=== PATIENT | male | born 1945 | race Caucasian/White ===

== ENCOUNTER 2016-06-20 15:00 | Emergency (ER) | payer MEDICARE, OTHER ==
[2016-02-26 10:54] VITALS: BMI 31.8
[~2016-06-20 15:00] MED LIST: ASCORBIC ACID500 MG PO; ATARAX 25 MG TA25 MG PO; BAYER CHEWABLE81 MG PO; BUMEX 1 MG TAB1 MG PO; CORDARONE200 MG PO; DIPROLENE 0.05%60 M1 TOPICAL; FLORAJEN3 CAPS460 MG PO; LEVAQUIN500 MG PO; LEVAQUIN750 MG PO; LIBRAX CAPSULE1 CAP PO; LOPID600 MG PO; METHADONE 10 MG10 MG PO; NOVOLIN N100 U/ML SQ; NOVOLIN R100 U/ML SQ; OMEPRAZOLE40 MG PO; PRAVACHOL80 MG PO; PREDNISONE20 MG PO; VERELAN120 MG PO; ZANAFLEX4 MG PO; ZESTORETIC 20-1 EACH PO
== END 2016-06-20 17:08 | disposition home or self-care (01) ==
LOC: D.ER 15:00
DX: S00.81XA Abrasion of other part of head, initial encounter (principal); W19.XXXA Unspecified fall, initial encounter; Y93.89 Activity, other specified; Y92.89 Other specified places as the place of occurrence of the external cause; S43.401A Unspecified sprain of right shoulder joint, initial encounter; I50.9 Heart failure, unspecified; J44.9 Chronic obstructive pulmonary disease, unspecified; E11.9 Type 2 diabetes mellitus without complications; I10 Essential (primary) hypertension; G89.29 Other chronic pain; Z99.81 Dependence on supplemental oxygen

== ENCOUNTER → 2016-06-26 13:05 | Outpatient (CLI) | payer MEDICARE, OTHER ==
[2016-02-26 10:54] VITALS: BMI 31.8
== END | disposition home or self-care (01) ==
LOC: D.CT 13:05
DX: S42.253A Displaced fracture of greater tuberosity of unspecified humerus, initial encounter for closed fracture (principal)

== ENCOUNTER → 2016-08-12 09:52 | Outpatient (CLI) | payer MEDICARE, OTHER ==
[2016-02-26 10:54] VITALS: BMI 31.8
== END | disposition home or self-care (01) ==
LOC: D.US 09:52
DX: I71.4 Abdominal aortic aneurysm, without rupture (principal)

== ENCOUNTER → 2016-11-03 12:23 | Outpatient (CLI) | payer MEDICARE, OTHER ==
[2016-02-26 10:54] VITALS: BMI 31.8
== END | disposition home or self-care (01) ==
LOC: D.CT 12:23
DX: S42.251A Displaced fracture of greater tuberosity of right humerus, initial encounter for closed fracture (principal); M25.511 Pain in right shoulder

== ENCOUNTER 2016-11-20 07:30 | Day surgery (SDC) | payer MEDICARE, OTHER ==
[~2016-11-20] VITALS: Ht 177.8 cm; Wt 101.6 kg
[2016-11-20] MEDS ORDERED: FUROSEMIDE20 MG PO (08:04)
[2016-11-20] MEDS ORDERED: NOVOLIN R100 U/ML SQ ×2 (08:07→08:08)
[2016-11-20] MEDS ORDERED: PROAIR HFA8.5 GM INH (08:10)
[2016-11-20] MEDS ORDERED: ZYLOPRIM100 MG PO (08:10)
[2016-11-20 08:11] LABS: HEMATOCRIT 34.3 % (42.0-54.0); HEMOGLOBIN 11.4 g/dL (13.5-17.5); MCH 32.3 pg (26.0-34.0); MCHC 33.2 g/dL (31.0-37.0); MCV 97.2 fL (80.0-100.0); MEAN PLATELET VOLUME 10.1 fL (7.4-10.4); RBC 3.53 10x6/uL (4.20-6.10); RDW 14.7 % (11.5-14.5); WBC 10.7 10x3/uL (4.8-10.8)
[2016-11-20] MEDS ORDERED: BUMEX 1 MG TAB1 MG PO (08:11)
[2016-11-20 08:20] VITALS: BP 116/65; Ht 177.8 cm; Wt 101.6 kg
[2016-11-20 08:20] LABS: ANION GAP 19.1 mmol/L (8-16); CALCIUM 8.9 mg/dL (8.5-10.1); CARBON DIOXIDE 23.4 mmol/L (21.0-32.0); CREATININE - SERUM 2.3 mg/dL (0.6-1.3); POTASSIUM - SERUM 4.5 mmol/L (3.5-5.1)
[2016-11-20] MEDS ORDERED: MORPHINE IMMEDI15 MG PO (08:24)
[2016-11-20] MEDS ORDERED: PLAVIX75 MG PO (08:30)
[2016-11-20] MEDS ORDERED: MEPERIDINE HCL50 MG PO (11:41)
--- NOTE | 2016-11-20 15:26 | NUR ---
1325 IV DC WITH CATHER TIP INTACT
--- NOTE | 2016-11-27 13:14 | OP ---
PATIENT NAME: LEO HOWARD MEDICAL RECORD: [id number] :47 LOCATION:D.OPS ADMISSION DATE: SURGEON: HAIM CALLAHAN MD OPERATION DATE: 11/20/16 DATE OF OPERATION: 11/20/2016 PREOPERATIVE DIAGNOSIS: Rotator cuff tear of the right shoulder. POSTOPERATIVE DIAGNOSIS: Rotator cuff tear of the right shoulder. PROCEDURES: Rotator cuff repair of the right shoulder to include subacromial decompression, biceps tendinitis. SURGEON: Haim Callahan MD. ANESTHESIA: General. INTRAOPERATIVE COMPLICATIONS: None. OPERATIVE SUMMARY IN DETAIL: Patient was taken to the operating room and placed on the operating table in supine position. After general laryngeal mask was administered, the patient was placed in the beach chair position. All pressure points were well padded to include down leg peroneal pad as well as axillary roll. The patient was held firmly to the operating table using the vacuum pack suction system. Right upper extremity and shoulder were prepped and draped in routine sterile fashion. The arm was held in the Trimano arm holding device. A saber-type incision was created, taken down the level of the rotator cuff tear that was evaluated. Dissection was carried about the anterior aspect of the acromion. Acromioplasty was performed with a sagittal saw. Rotator cuff tear was evaluated and the patient was found to have severe biceps tendinitis. Biceps was then cut at the root of the biceps tendon and anchored laterally using a 7-mm anchor from Arthrex with good position and placement. The lateral aspect of the greater tuberosity was rasped back to good bleeding bone and then the rotator cuff was repaired using the double row fixation of the Arthrex suture anchors. Having completed this, the wounds were copiously irrigated and closed in routine interrupted fashion. Sterile dressings were applied. The patient was awakened and taken to the recovery room in stable condition. All final needle and sponge counts were correct. TRANSINT:[id number] Voice Confirmation ID: [id number] DOCUMENT ID: [id number] HAIM CALLAHAN MD at 1314 CC: [id number] DICTATION DATE: 11/21/16 1055 CONTOUR SANDER: 11/27/16 0004 [facility] 11/20/16 [place] [address]
== END 2016-11-20 13:30 | disposition home or self-care (01) ==
LOC: D.OPS 07:30
PROVIDERS: Anesthesiology
DX: M75.101 Unspecified rotator cuff tear or rupture of right shoulder, not specified as traumatic (principal); M25.511 Pain in right shoulder; I25.10 Atherosclerotic heart disease of native coronary artery without angina pectoris; I10 Essential (primary) hypertension; E11.9 Type 2 diabetes mellitus without complications; J44.9 Chronic obstructive pulmonary disease, unspecified; Z95.1 Presence of aortocoronary bypass graft; K21.9 Gastro-esophageal reflux disease without esophagitis; I50.9 Heart failure, unspecified; Z01.812 Encounter for preprocedural laboratory examination; S42.251A Displaced fracture of greater tuberosity of right humerus, initial encounter for closed fracture

== ENCOUNTER → 2017-02-04 10:33 | Outpatient (CLI) | payer MEDICARE, OTHER ==
[2016-11-20 08:20] VITALS: BMI 32.2
[~2017-02-04 10:33] MED LIST changes: +FUROSEMIDE20 MG PO; +MEPERIDINE HCL50 MG PO; +MORPHINE IMMEDI15 MG PO; +PLAVIX75 MG PO; +PROAIR HFA8.5 GM INH; +ZYLOPRIM100 MG PO
== END | disposition home or self-care (01) ==
LOC: D.US 10:33
DX: R60.0 Localized edema (principal); M79.601 Pain in right arm

== ENCOUNTER → 2017-04-17 10:10 | Outpatient (CLI) | payer MEDICARE, OTHER ==
[2016-11-20 08:20] VITALS: BMI 32.2
[~2017-04-17 10:10] MED LIST changes: +BUTALB-APAP-CA1 EACH PO; +COLACE100 MG PO; +DIFLUCAN150 MG PO; +MIRALAX17 GM PO; +ONDANSETRON4 MG/2 M3 IV; +PROTONIX40 MG PO; +VELTASSA8.4 GM PO; +VITAMIN D250000 UNIT PO
== END | disposition home or self-care (01) ==
LOC: D.LAB 10:10
DX: N18.4 Chronic kidney disease, stage 4 (severe) (principal); E87.5 Hyperkalemia

== ENCOUNTER → 2017-04-20 09:51 | Outpatient (CLI) | payer MEDICARE, OTHER ==
[2016-11-20 08:20] VITALS: BMI 32.2
[2017-04-20 10:48] LABS: MAGNESIUM - SERUM 2.2 mg/dL (1.8-2.4); POTASSIUM - SERUM 5.7 mmol/L (3.5-5.1)
== END | disposition home or self-care (01) ==
LOC: D.LAB 09:51
PROVIDERS: Internal Medicine Nephrology
DX: E87.5 Hyperkalemia (principal)

== ENCOUNTER 2017-04-23 05:59 | Day surgery (SDC) | payer MEDICARE, OTHER ==
[2017-04-22 14:25] LABS: HEMATOCRIT 34.8 % (42.0-54.0); HEMOGLOBIN 11.6 g/dL (13.5-17.5); MCH 31.4 pg (26.0-34.0); MCHC 33.3 g/dL (31.0-37.0); MCV 94.3 fL (80.0-100.0); MEAN PLATELET VOLUME 10.5 fL (7.4-10.4); RBC 3.69 10x6/uL (4.20-6.10); RDW 14.5 % (11.5-14.5); WBC 9.5 10x3/uL (4.8-10.8)
[2017-04-22 14:33] LABS: ANION GAP 17.8 mmol/L (8-16); CALCIUM 9.7 mg/dL (8.5-10.1); CARBON DIOXIDE 22.5 mmol/L (21.0-32.0); CREATININE - SERUM 1.8 mg/dL (0.6-1.3); POTASSIUM - SERUM 5.3 mmol/L (3.5-5.1)
[~2017-04-23] VITALS: Ht 177.8 cm; Wt 105.2 kg
[~2017-04-23 05:59] MED LIST changes: -COLACE100 MG PO; -DIFLUCAN150 MG PO; -MIRALAX17 GM PO; -ONDANSETRON4 MG/2 M3 IV; -PROTONIX40 MG PO
[2017-04-23 09:29] VITALS: BP 98/58; Ht 177.8 cm; Wt 105.2 kg
[2017-04-23 10:09] LABS: POTASSIUM - SERUM 5.2 mmol/L (3.5-5.1)
[2017-04-23] MEDS ORDERED: MEPERIDINE HCL50 MG PO (13:41)
--- NOTE | 2017-04-23 16:07 | NUR ---
1545 DISCHARGE INSTRUCTIONS COMPLETE. PT HAS NO QUESTIONS OR CONCERNS AT THIS TIME. SLING PLACED AND PRESCRITPION GIVEN. ESCORTED OUT BY LC VELÁZQUEZ.
--- NOTE | 2017-04-27 09:27 | OP ---
PATIENT NAME: LEO HOWARD MEDICAL RECORD: [id number] :47 LOCATION:D.OPS ADMISSION DATE: SURGEON: HAIM CALLAHAN MD DATE OF OPERATION: 04/23/2017 PREOPERATIVE DIAGNOSIS: Large intraarticular loose body of the right shoulder with residual rotator cuff tear. POSTOPERATIVE DIAGNOSIS: Large intraarticular loose body of the right shoulder with residual rotator cuff tear. PROCEDURES: 1. Right shoulder arthroscopy with arthroscopic removal of intraarticular loose body. 2. Rotator cuff repair. SURGEON: Haim Callahan MD ANESTHESIA: General. INTRAOPERATIVE COMPLICATIONS: None. SUMMARY OF PATHOLOGIC FINDINGS: The patient did indeed have one of the previously placed suture anchors that had backed out and required removal. This was done arthroscopically. A small void in the rotator cuff was left behind. OPERATIVE SUMMARY IN DETAIL: After obtaining the appropriate preoperative orthopedic surgery consent as well as anesthetic consultation, evaluation and clearance, the patient was brought to the operating room and placed on the operating table in supine position. After general laryngeal mask was administered, the patient was placed in left lateral decubitus position. All pressure points were well padded to include down leg peroneal pad as well as axillary roll. The patient was held firmly to the operating table using the vacuum pack suction system. Right upper extremity and shoulder were then prepped and draped in a routine sterile fashion. The arm was held in the Arthrex traction boom at 30 degrees of forward flexion, 30 degrees of abduction, and 10 pounds of traction laterally. A small stab incision was made posteriorly. The posterior portal was established in usual fashion as was as the anterior portal under direct arthroscopic visualization. Small portion of fragment of the screw was removed, as was a bony prominence. These were taken down with a combination of arthroscopic resectors as well as arthroscopic graspers. Having completed this, attention was turned to the subacromial space. While in the subacromial space, a large area of rotator cuff thinning and tearing was noted. This was debrided, decorticated and then reapproximated. Mini-arthrotomy was made at this point and reapproximation was done under direct visualization using #2 Ethibond. Substantial amount of scar tissue was taken down. Wound was then closed with 2-0 Vicryl, followed by skin juni. Sterile dressings were applied. The patient was awakened and taken to the recovery room in stable condition. All final needle, instrument, and sponge counts were correct. TRANSINT:[id number] Voice Confirmation ID: [id number] DOCUMENT ID: [id number] OPERATIVE REPORT [id number] LEO HOWARD MD, HAIM AHUJA at 0927 CC: [id number] DICTATION DATE: 04/23/17 141 INSIDE BARREL LATHE OPERATOR: 04/23/17 1627 [facility] [place] 04/23/17 [id number] [place] [address]
== END 2017-04-23 15:45 | disposition home or self-care (01) ==
LOC: D.OPS 05:59 → D.PAN 13:30 → D.OPS 13:30
PROVIDERS: Anesthesiology; Orthopaedic Surgery
DX: M77.9 Enthesopathy, unspecified (principal); M75.101 Unspecified rotator cuff tear or rupture of right shoulder, not specified as traumatic; I25.10 Atherosclerotic heart disease of native coronary artery without angina pectoris; I10 Essential (primary) hypertension; E11.9 Type 2 diabetes mellitus without complications; J44.9 Chronic obstructive pulmonary disease, unspecified; Z95.5 Presence of coronary angioplasty implant and graft; Z95.1 Presence of aortocoronary bypass graft; Z01.812 Encounter for preprocedural laboratory examination

== ENCOUNTER 2017-05-29 13:24 | Inpatient (IN) | payer MEDICARE, OTHER ==
[~2017-05-29] VITALS: Ht 177.8 cm; Wt 104.3 kg
--- NOTE | ~2017-05-29 | CN ---
PATIENT NAME:LEO HOWARD MEDICAL RECORD: [id number] : 47 LOCATION:D.MS [facility]27 ADMIT DATE: 05/29/17 ACCOUNT: [id number] CONSULTING PHYSICIAN: TERESO CHEEMA MD REFERRING PHYSICIAN: DENIS HARRISON MD DATE OF CONSULTATION: 06/03/2017 CHIEF COMPLAINT: Sore. HISTORY OF PRESENT ILLNESS: The patient presented to the Emergency Room with generalized weakness. It has been present for a couple of weeks. I thought that the patient had a neurologic disorder. He states he does not have a neurologic disorder, although he has some spasticity of the extremities. He states that he is weak due to chronic obstructive pulmonary disease and that he sits around a lot. He has a decubitus ulcer that is unstageable currently that is on both the buttocks and over the sacrum. 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 He is admitted with the decubitus ulcer as well as generalized weakness, anemia, hyperglycemia, acute kidney injury as well as dehydration. Reportedly, the patient has been treated for a urinary tract infection recently. Symptoms are difficult to characterize by the patient. Sitting seems to exacerbate. Nothing seems to alleviate. PAST MEDICAL AND SURGICAL HISTORY: COPD, hypoxemia, forehead abrasion, ligamentous sprain, history of intracranial hemorrhage due to a fall in 2013, so it does appear that he has had a neurologic condition in the past, history of bypass, history of coronary stents, congestive heart failure, chronic pain, significant deterioration in the spine and back, diabetes type 2, pneumonia. SOCIAL HISTORY: Does not drink, does not smoke. HOME MEDICINES: Amiodarone, ascorbic acid, aspirin, topical cream, bumetanide, cetirizine, Plavix, ferrous sulfate, Fiorinal, gemfibrozil, NPH insulin, methadone, Zestoretic, pravastatin, tizanidine, Ventolin inhaler, verapamil, Zantac. ALLERGIES: CODEINE, ALSO ALLERGIES TO GABAPENTIN, TALWIN, WHEAT, HYDROCODONE, OXYCODONE, CODEINE, AND SECONAL. PHYSICAL EXAMINATION: GENERAL: The patient appears acutely ill. He also appears chronically ill. VITAL SIGNS: Reviewed. EARS: External ears appear normal. EYES: Extraocular movements are intact. NECK: Trachea is midline. CHEST: No intercostal retractions. PULMONARY: Mildly labored. No stridor. ABDOMEN: No peritonitis with movement. EXTREMITIES: Some extremity contractures. Partial hand amputation. PSYCHIATRIC: Anxious affect. NEUROLOGIC: Abnormal. Decreased motion of the extremities. BACK: Thoracic kyphosis is present. LYMPHATICS: No lymphangitic streaking of the exposed extremities. INTEGUMENT: There is a decubitus ulcer over the buttocks that is currently CONSULT REPORT [id number] LEO HOWARD unstageable. There is some dry eschar as well as some surrounding granulation tissue. IMPRESSION: Sacral decubitus ulcer. PLAN: Debridement in the operating room. TRANSINT:[id number] Voice Confirmation ID: [id number] DOCUMENT ID: [id number] TERESO CHEEMA MD at 1454 CC: REBECCA SEWELL [id number] DICTATION DATE: 06/05/17 0838 AGRICULTURAL EQUIPMENT DESIGN ENGINEER: 06/05/17 1325 DIS IN 06/05/17 [facility] [address] [place] [address]
--- NOTE | ~2017-05-29 | OP ---
PATIENT NAME: LEO HOWARD MEDICAL RECORD: [id number] :47 LOCATION:D.MS [facility]27 ADMISSION DATE:05/29/17 SURGEON: KALIN CHEEMA MD DATE OF OPERATION: 06/05/2017 PREOPERATIVE DIAGNOSIS: Sacral decubitus ulcer. POSTOPERATIVE DIAGNOSIS: Sacral decubitus ulcer. Please see dimensions below. PROCEDURE: Excision of decubitus ulcer. Dimensions of the debridement, including margins, measured 4.2 cm x 3.2 cm included skin only. This was a partial thickness skin debridement. The debridement was a sharp debridement. Debridement was carried down to bleeding healthy tissue. SURGEON: Kalin Cheema MD PENSION ADVISER: None. BLOOD LOSS: Minimal. ANESTHESIA: General. COMPLICATIONS: None. The risks, possible complications and alternatives to procedure were explained to the patient. He elects to proceed. OPERATIVE COURSE: The patient was conveyed to the operating room electively on 06/05/2017. General anesthesia was induced by the anesthesia staff. The patient was placed in the full lateral decubitus position with the left side down. The buttocks were sterilely prepped and draped. Utilizing a razor blade held in a curved position, I performed a partial thickness debridement of the skin down into the dermis. The epidermis was debrided as well. Hemostasis was achieved with hydrogen peroxide. A saline wet to dry dressing was then applied. The patient was then extubated and conveyed to the post-anesthesia care unit where he was in stable condition. TRANSINT:[id number] Voice Confirmation ID: [id number] DOCUMENT ID: [id number] KALIN CHEEMA MD at 1454 CC: DENIS HARRISON MD [id number] DICTATION DATE: 06/05/17 0841 CONVERSION WORKER: 06/05/17 1242 DIS IN 06/05/17 [facility] [address] [place] [id number]
[2017-05-29 15:02] LABS: BASOPHILS 0.3 % (0-2); EOSINOPHILS 14.7 % (0-7); HEMATOCRIT 31.1 % (42.0-54.0); IMMATURE GRANULOCYTES 0.8 % (0-5); LYMPHOCYTES 25.5 % (15-50); MCHC 32.2 g/dL (31.0-37.0); MCV 96.3 fL (80.0-100.0); MEAN PLATELET VOLUME 10.4 fL (7.4-10.4); MONOCYTES 6.3 % (2-11); NEUTROPHILS 52.4 % (40-80); PLATELET COUNT 168 10x3/uL (130-400); RBC 3.23 10x6/uL (4.20-6.10); RDW 14.9 % (11.5-14.5); WBC 8.9 10x3/uL (4.8-10.8)
[2017-05-29 15:14] LABS: ALBUMIN 3.5 g/dL (3.4-5.0); ALKALINE PHOSPHATASE 106 U/L (46-116); ALT (SGPT) 15 U/L (10-68); BILIRUBIN - TOTAL 0.18 mg/dL (0.2-1.3); CALC OSMOLALITY 297 mosm/kg (275-300); CALCIUM 9.3 mg/dL (8.5-10.1); CARBON DIOXIDE 26.2 mmol/L (21.0-32.0); CHLORIDE - SERUM 100 mmol/L (98-107); CREATININE - SERUM 2.8 mg/dL (0.6-1.3); GLUCOSE 210 mg/dL (74-106); POTASSIUM - SERUM 5.7 mmol/L (3.5-5.1); PROTEIN - SERUM 7.3 g/dL (6.4-8.2); SODIUM 136 mmol/L (136-145); UREA NITROGEN 68 mg/dL (7-18); eGFR NON AFRICAN AMERICAN 24 mL/min (90-120)
[2017-05-29 15:24] LABS: CREATINE KINASE 62 UL (21-232); MAGNESIUM - SERUM 2.2 mg/dL (1.8-2.4); PRO BNP 64 pg/mL (0-125); THYROID STIMULATING HORMONE 3.54 uIU/mL (0.36-3.74)
[2017-05-29 15:25] LABS: TROPONIN-I < 0.017 ng/mL (0.000-0.060)
[2017-05-29 16:41] LABS: APPEARANCE CLEAR (CLEAR); BACTERIA FEW /hpf (NONE SEEN); BILIRUBIN NEGATIVE (NEGATIVE); COLOR YELLOW (YELLOW); GLUCOSE NEGATIVE (NEGATIVE); KETONE NEGATIVE (NEGATIVE); NITRITE NEGATIVE (NEGATIVE); PROTEIN NEGATIVE (NEGATIVE); SPECIFIC GRAVITY 1.015 (1.005-1.020); UROBILINOGEN NORMAL (NORMAL); WHITE CELLS - URINE 0-5 /hpf (0-5)
[2017-05-29 20:00] VITALS: BP 173/76
[2017-05-30] VITALS (7 sets, daily range): BP systolic 147–182; BP diastolic 64–69; Ht 177.8 cm; Wt 104.3 kg
[2017-05-30] MEDS ORDERED: DIFLUCAN150 MG PO (01:41)
[2017-05-30 07:09] LABS: HEMATOCRIT 33.7 % (42.0-54.0); HEMOGLOBIN 11.4 g/dL (13.5-17.5); LYMPHOCYTES 20.4 % (15-50); MCH 30.6 pg (26.0-34.0); MCHC 33.8 g/dL (31.0-37.0); MEAN PLATELET VOLUME 9.9 fL (7.4-10.4); NEUTROPHILS 69.1 % (40-80); RBC 3.73 10x6/uL (4.20-6.10); RDW 14.3 % (11.5-14.5); WBC 11.1 10x3/uL (4.8-10.8)
[2017-05-30 07:20] LABS: MCV 90.3 fL (80.0-100.0); PLATELET COUNT 210 10x3/uL (130-400)
[2017-05-30 07:21] LABS: ANION GAP 15.8 mmol/L (8-16); CALCIUM 9.2 mg/dL (8.5-10.1); CARBON DIOXIDE 28.3 mmol/L (21.0-32.0)
[2017-05-30 07:22] LABS: POTASSIUM - SERUM 6.1 mmol/L (3.5-5.1)
[2017-05-31 08:42] VITALS: BP 177/66
[2017-05-31 11:51] VITALS: BP 153/82
[2017-05-31 13:00] LABS: BASOPHILS 0.5 % (0-2); EOSINOPHILS 14.8 % (0-7); HEMOGLOBIN 11.4 g/dL (13.5-17.5); IMMATURE GRANULOCYTES 0.7 % (0-5); LYMPHOCYTES 24.9 % (15-50); MCH 31.5 pg (26.0-34.0); MCHC 33.5 g/dL (31.0-37.0); MEAN PLATELET VOLUME 10.3 fL (7.4-10.4); MONOCYTES 7.4 % (2-11); NEUTROPHILS 51.7 % (40-80); RBC 3.62 10x6/uL (4.20-6.10); RDW 15.1 % (11.5-14.5); WBC 9.2 10x3/uL (4.8-10.8)
[2017-05-31 13:01] LABS: MCV 93.9 fL (80.0-100.0); PLATELET COUNT 92 10x3/uL (130-400)
[2017-05-31 13:04] LABS: PLATELET ESTIMATE NORMAL
[2017-05-31 13:18] LABS: ANION GAP 18.9 mmol/L (8-16); CALCIUM 8.7 mg/dL (8.5-10.1); CARBON DIOXIDE 24.3 mmol/L (21.0-32.0); CREATININE - SERUM 1.7 mg/dL (0.6-1.3); POTASSIUM - SERUM 5.2 mmol/L (3.5-5.1)
[2017-05-31 15:39] VITALS: BP 154/69
[2017-05-31 15:57] LABS: APPEARANCE CLEAR (CLEAR); BILIRUBIN NEGATIVE (NEGATIVE); COLOR YELLOW (YELLOW); GLUCOSE 1000 mg/dL (NEGATIVE); KETONE NEGATIVE (NEGATIVE); NITRITE NEGATIVE (NEGATIVE); PROTEIN NEGATIVE (NEGATIVE); UROBILINOGEN NORMAL (NORMAL)
[2017-05-31 20:00] VITALS: BP 150/83
[2017-06-01] VITALS: BP 135/65
[2017-06-01 04:00] VITALS: BP 102/66
[2017-06-01 04:36] LABS: BASOPHILS 0.2 % (0-2); EOSINOPHILS 14.5 % (0-7); HEMATOCRIT 31.1 % (42.0-54.0); HEMOGLOBIN 10.1 g/dL (13.5-17.5); IMMATURE GRANULOCYTES 0.7 % (0-5); LYMPHOCYTES 33.8 % (15-50); MCH 30.9 pg (26.0-34.0); MCHC 32.5 g/dL (31.0-37.0); MCV 95.1 fL (80.0-100.0); MEAN PLATELET VOLUME 9.7 fL (7.4-10.4); MONOCYTES 5.5 % (2-11); NEUTROPHILS 45.3 % (40-80); RBC 3.27 10x6/uL (4.20-6.10); RDW 14.9 % (11.5-14.5); WBC 10.3 10x3/uL (4.8-10.8)
[2017-06-01 04:38] LABS: PLATELET COUNT 182 10x3/uL (130-400)
[2017-06-01 04:54] LABS: ANION GAP 13.8 mmol/L (8-16); CALCIUM 8.6 mg/dL (8.5-10.1); CARBON DIOXIDE 26.9 mmol/L (21.0-32.0); CREATININE - SERUM 1.4 mg/dL (0.6-1.3); POTASSIUM - SERUM 4.7 mmol/L (3.5-5.1)
[2017-06-01 08:45] VITALS: BP 153/77
[2017-06-01 12:37] VITALS: BP 168/74
[2017-06-01 17:51] VITALS: BP 158/75
[2017-06-01 20:00] VITALS: BP 148/65
[2017-06-02 04:00] VITALS: BP 125/61
[2017-06-02 04:54] LABS: BASOPHILS 0.3 % (0-2); EOSINOPHILS 17.1 % (0-7); HEMOGLOBIN 9.3 g/dL (13.5-17.5); IMMATURE GRANULOCYTES 0.7 % (0-5); LYMPHOCYTES 32.5 % (15-50); MCH 30.8 pg (26.0-34.0); MCHC 32.1 g/dL (31.0-37.0); MEAN PLATELET VOLUME 10.1 fL (7.4-10.4); MONOCYTES 5.8 % (2-11); NEUTROPHILS 43.6 % (40-80); PLATELET COUNT 152 10x3/uL (130-400); RBC 3.02 10x6/uL (4.20-6.10); WBC 9.1 10x3/uL (4.8-10.8)
[2017-06-02 05:21] LABS: ALBUMIN 2.9 g/dL (3.4-5.0); ANION GAP 11.7 mmol/L (8-16); BILIRUBIN - TOTAL 0.2 mg/dL (0.2-1.3); CALCIUM 8.4 mg/dL (8.5-10.1); CARBON DIOXIDE 27.8 mmol/L (21.0-32.0); CREATININE - SERUM 1.4 mg/dL (0.6-1.3); POTASSIUM - SERUM 4.5 mmol/L (3.5-5.1); PROTEIN - SERUM 6.2 g/dL (6.4-8.2)
[2017-06-02 09:29] VITALS: BP 146/69
[2017-06-02 15:31] LABS: APPEARANCE CLEAR (CLEAR); BILIRUBIN NEGATIVE (NEGATIVE); COLOR YELLOW (YELLOW); GLUCOSE 250 mg/dL (NEGATIVE); KETONE NEGATIVE (NEGATIVE); NITRITE NEGATIVE (NEGATIVE); PROTEIN NEGATIVE (NEGATIVE); UROBILINOGEN NORMAL (NORMAL)
[2017-06-02 21:30] VITALS: BP 115/47
[2017-06-03 04:00] VITALS: BP 114/57
[2017-06-03 06:52] LABS: BASOPHILS 0.5 % (0-2); EOSINOPHILS 18.1 % (0-7); HEMATOCRIT 28.5 % (42.0-54.0); HEMOGLOBIN 9.3 g/dL (13.5-17.5); IMMATURE GRANULOCYTES 1.2 % (0-5); LYMPHOCYTES 32.9 % (15-50); MCH 31.1 pg (26.0-34.0); MCHC 32.6 g/dL (31.0-37.0); MCV 95.3 fL (80.0-100.0); MEAN PLATELET VOLUME 10.2 fL (7.4-10.4); MONOCYTES 6.6 % (2-11); NEUTROPHILS 40.7 % (40-80); PLATELET COUNT 146 10x3/uL (130-400); RBC 2.99 10x6/uL (4.20-6.10); RDW 15.1 % (11.5-14.5); WBC 7.4 10x3/uL (4.8-10.8)
[2017-06-03 07:39] LABS: ALBUMIN 2.9 g/dL (3.4-5.0); ANION GAP 15.6 mmol/L (8-16); BILIRUBIN - TOTAL 0.19 mg/dL (0.2-1.3); CALCIUM 8.7 mg/dL (8.5-10.1); CARBON DIOXIDE 25.8 mmol/L (21.0-32.0); CREATININE - SERUM 1.2 mg/dL (0.6-1.3); POTASSIUM - SERUM 4.4 mmol/L (3.5-5.1); PROTEIN - SERUM 6.3 g/dL (6.4-8.2)
[2017-06-03 08:09] VITALS: BP 125/62
[2017-06-03 12:45] VITALS: BP 130/60
[2017-06-03 16:28] VITALS: BP 132/64
[2017-06-03 22:57] VITALS: BP 155/69
[2017-06-04] VITALS (7 sets, daily range): BP systolic 101–176; BP diastolic 46–93
[2017-06-04 04:30] LABS: BASOPHILS 0.4 % (0-2); EOSINOPHILS 18.1 % (0-7); HEMATOCRIT 26.8 % (42.0-54.0); HEMOGLOBIN 8.7 g/dL (13.5-17.5); IMMATURE GRANULOCYTES 0.7 % (0-5); LYMPHOCYTES 34.2 % (15-50); MCH 31.1 pg (26.0-34.0); MCHC 32.5 g/dL (31.0-37.0); MCV 95.7 fL (80.0-100.0); MEAN PLATELET VOLUME 9.5 fL (7.4-10.4); MONOCYTES 6.2 % (2-11); NEUTROPHILS 40.4 % (40-80); PLATELET COUNT 132 10x3/uL (130-400); RDW 15.4 % (11.5-14.5)
[2017-06-04 05:02] LABS: ALBUMIN 2.7 g/dL (3.4-5.0); ALKALINE PHOSPHATASE 93 U/L (46-116); ALT (SGPT) 20 U/L (10-68); BILIRUBIN - TOTAL 0.18 mg/dL (0.2-1.3); CALC OSMOLALITY 286 mosm/kg (275-300); CALCIUM 7.4 mg/dL (8.5-10.1); CARBON DIOXIDE 23.2 mmol/L (21.0-32.0); CHLORIDE - SERUM 107 mmol/L (98-107); GLUCOSE 191 mg/dL (74-106); POTASSIUM - SERUM 4.7 mmol/L (3.5-5.1); PROTEIN - SERUM 5.8 g/dL (6.4-8.2); SODIUM 141 mmol/L (136-145); eGFR NON AFRICAN AMERICAN 78 mL/min (90-120)
[2017-06-04 05:05] LABS: UREA NITROGEN 14 mg/dL (7-18)
[2017-06-05 04:00] VITALS: BP 126/50
[2017-06-05 05:22] LABS: BASOPHILS 0.3 % (0-2); EOSINOPHILS 13.5 % (0-7); HEMATOCRIT 27.5 % (42.0-54.0); IMMATURE GRANULOCYTES 1.2 % (0-5); LYMPHOCYTES 11.1 % (15-50); MCHC 32.7 g/dL (31.0-37.0); MCV 94.8 fL (80.0-100.0); MEAN PLATELET VOLUME 9.8 fL (7.4-10.4); MONOCYTES 6.2 % (2-11); NEUTROPHILS 67.7 % (40-80); PLATELET COUNT 135 10x3/uL (130-400); RDW 15.6 % (11.5-14.5); WBC 6.5 10x3/uL (4.8-10.8)
[2017-06-05 05:50] LABS: ALBUMIN 2.9 g/dL (3.4-5.0); BILIRUBIN - TOTAL 0.35 mg/dL (0.2-1.3); CALCIUM 8.4 mg/dL (8.5-10.1); CARBON DIOXIDE 22.3 mmol/L (21.0-32.0); PROTEIN - SERUM 6.4 g/dL (6.4-8.2)
[2017-06-05 05:51] LABS: ANION GAP 14.7 mmol/L (8-16); CREATININE - SERUM 1.4 mg/dL (0.6-1.3)
[2017-06-05 08:13] VITALS: BP 119/70
[2017-06-05] MEDS ORDERED: COLACE100 MG PO (11:28)
[2017-06-05] MEDS ORDERED: MIRALAX17 GM PO (11:28)
[2017-06-05] MEDS ORDERED: PROTONIX40 MG PO (11:28)
[2017-06-05] MEDS ORDERED: ONDANSETRON4 MG/2 M3 IV (11:28)
[2017-06-05 12:13] VITALS: BP 135/56
[2017-06-05 17:20] VITALS: BP 140/68
== END 2017-06-05 18:10 | DRG 683 ==
LOC: D.ER 13:24 → D.MS 16:28
PROVIDERS: Emergency Medicine; Family Medicine; Internal Medicine Nephrology; Surgery
PROC: 0HB6XZZ Excision of Back Skin, External Approach (ICD-10-PCS; principal; 2017-06-05 08:23)
DX: N17.9 Acute kidney failure, unspecified (principal); K56.7 Ileus, unspecified; E86.0 Dehydration; R53.1 Weakness; E11.22 Type 2 diabetes mellitus with diabetic chronic kidney disease; E11.65 Type 2 diabetes mellitus with hyperglycemia; I12.9 Hypertensive chronic kidney disease with stage 1 through stage 4 chronic kidney disease, or unspecified chronic kidney disease; N18.9 Chronic kidney disease, unspecified; L89.152 Pressure ulcer of sacral region, stage 2; D63.1 Anemia in chronic kidney disease; D72.1 Eosinophilia; E87.5 Hyperkalemia; G89.29 Other chronic pain; T40.605A Adverse effect of unspecified narcotics, initial encounter; K59.00 Constipation, unspecified; I48.2 Chronic atrial fibrillation

== ENCOUNTER 2017-06-05 18:48 | Inpatient (IN) | payer MEDICARE, OTHER ==
[~2017-06-05] VITALS: Ht 177.8 cm; Wt 104.3 kg
--- NOTE | ~2017-06-05 | RHP ---
PATIENT: LEO HOWARD MEDICAL RECORD: [id number] ACCOUNT: [id number] LOCATION:[facility]1119 : 47 ADMISSION DATE: 06/05/17 REHABILITATION HISTORY AND PHYSICAL EXAMINATION POST ADMISSION PHYSICIAN EXAMINATION DATE OF ADMISSION: 06/05/2017. ADMITTING DIAGNOSIS: Acute exacerbation of chronic obstructive pulmonary disease. HISTORY OF PRESENT ILLNESS: The patient is admitted to an inpatient rehab with acute exacerbation of COPD. A 72-year-old gentleman brought in 05/29/2017 with a 1-week history of increasing weakness and difficulty walking on the night of 05/28 prior to his hospitalization. He had nausea and vomiting. He was admitted to [facility] for further evaluation and treatment. He had a KUB, which showed a mild ileus secondary to a chronic narcotic-related constipation. His constipation has resolved and he has been having bowel movements. Also, he was found to have a UTI and receiving treatment. He is also admitted with a pressure ulcer to his coccyx area that was identified by the wound care nurse as stage III. Surgery was consulted. He had surgical debridement of this area of 06/05. He was also noted to have some problems with his right shoulder. He had shoulder surgery in June 2016 and again in November and again in April. He has recently seen a surgeon. He had continued problems with his shoulder, but declined to have any further treatment to this until over his current illness. states that he sees Dr. Liang. He has had no movement to his right shoulder at this time, but he has had no medical documentation as to why he continues to have increasing pain in his right shoulder and difficulty with this. He has a history of AFib and he has been on telemetry during his acute hospital stay, noted to be in normal sinus rhythm with occasional PVCs. He was noted to be moderately independent with his mobility and ADLs. Currently, he is set up for max assist for ADLs and moderate assist to total assist with his mobility. He lives at home with his and would like to return back to his prior level of functioning better. COMORBIDITIES: In this patient include chronic diabetes, chronic anemia, AFib, COPD, hypertension, chronic pain, CHF, surgically debrided coccyx wound, dehydration, uncontrolled diabetes, hyperkalemia, chronic pain, and constipation. PAST MEDICAL HISTORY: Significant for diabetes, hypertension, coronary artery bypass grafting, edema, anemia, COPD, pneumonia, O2 dependence, diverticulitis, ostomy with reversal of this, stage II kidney failure, chronic back pain, arthritis. His left hand was cut off and sewed back on. He has got a pressure ulcer to his coccyx. PAST SURGICAL HISTORY: Includes appendectomy, bowel resection, hand surgery, coronary artery bypass grafting, shoulder surgery times 2, and skin grafts. He has had a testicle removed. ALLERGIES: SECONAL, CODEINE, NORCO, GABAPENTIN, OXYCODONE, TALWIN and WHEAT. CURRENT MEDICATIONS: Include albuterol updrafts. He is on hydrochlorothiazide 12.5 mg daily, lisinopril 20 mg daily, vitamin D 50,000 units weekly, amiodarone 200 mg daily, Protonix 40 mg daily, Lopid 600 mg b.i.d., Plavix 75 mg daily, HISTORY AND PHYSICAL [id number] ANITALEO Bumex 1 mg daily, aspirin chewable 81 mg daily, vitamin C 500 mg daily, Zyloprim 100 mg daily, morphine IR 15 mg b.i.d. He is on an insulin NPH 90 units at bedtime. He is on Pravachol 80 mg at bedtime. He is on intermediate resistance sliding scale with Humalog. He is on Calan 120 mg b.i.d., Zanaflex 4 mg t.i.d. p.r.n., polyethylene glycol 17 g in 8 ounces of water b.i.d., Zofran p.r.n. nausea and vomiting, methadone 10 mg 5 times daily. He is on Colace 100 mg b.i.d., and Fioricet as needed for headaches. HABITS: No alcohol or tobacco use. FAMILY HISTORY: Noncontributory. SOCIAL HISTORY: The patient once again wants to return back home with his family. REVIEW OF SYSTEMS: GENERAL: He does complain of weakness and fatigue. HEENT: He denies cold, cough, congestion. CARDIOVASCULAR: He denies any chest pain. LUNGS: He does complain of shortness of breath with activity. PHYSICAL EXAMINATION: VITAL SIGNS: Stable, afebrile. GENERAL: An obese gentleman in no acute distress, alert upon exam. HEENT: Normocephalic and atraumatic. Mucosa moist. NECK: Supple. No lymphadenopathy. LUNGS: Clear in upper guillen. HEART: He has a regular rate and rhythm, although he is tachycardic. ABDOMEN: Benign. EXTREMITIES: No clubbing. NEUROLOGIC: Intact. LABORATORY DATA: His white count is 4.6, H&H of 9.3 and 28, and platelet count is 141. Sodium 137, potassium 4.6, BUN and creatinine of 18 and 1.2, and blood sugar is noted to be 163. ASSESSMENT: This is a 72-year-old gentleman admitted to the rehab with a working diagnosis of acute exacerbation of chronic obstructive pulmonary disease. The patient has potential to make improvement. We instituted the following multidisciplinary therapies including to, but not limited to physical, occupational, respiratory, speech, nutritional services, prosthetics and orthotics. Given his complex condition and risk for more complications, rehabilitation services cannot be provided at a lower level of care such as a [facility] facility. PLAN: 1. Admit to [facility] rehab for intensive inpatient therapy to include the following disciplines: A. Physical therapy to improve gait, all transfer skills and bed mobility to a modified independent level. B. Occupational therapy to improve activities of daily living to a modified independent level. C. Case management to assist with discharge planning and placement options. D. Nutrition to assist with nutritional needs. E. Rehabilitation nursing to assist in monitoring the patient's underlying HISTORY AND PHYSICAL [id number] ANITASANDRALEO medical conditions and to assist with any type of bowel or bladder management. 2. The patient's current medication and medical care will be continued. 3. The patient will be placed on standard fall precautions. 4. The patient's estimated length of stay is approximately 7-10 days. 5. Discuss this patient during care team staff meeting this week. TRANSINT:[id number] Voice Confirmation ID: [id number] DOCUMENT ID: [id number] EMERY notes whether there has been none or any medical/functional change since admission: - See NN for body audit. EMERY attests patient continues to be appropriate for IRF: - Continues to be appropriate. ALANIS VACA MD at 1455 CC: [id number] DICTATION DATE: 06/06/17 1343 GEOLOGICAL SCIENCE TEACHER: 06/06/17 1428 ADM IN [facility] [address] [place] [address]
[~2017-06-05 18:48] MED LIST changes: +COLACE100 MG PO; +DIFLUCAN150 MG PO; +MIRALAX17 GM PO; +ONDANSETRON4 MG/2 M3 IV; +PROTONIX40 MG PO
[2017-06-06 03:08] VITALS: BP 105/55; BMI 33.0
[2017-06-06 05:59] LABS: BASOPHILS 0.2 % (0-2); EOSINOPHILS 12.1 % (0-7); HEMATOCRIT 28.1 % (42.0-54.0); HEMOGLOBIN 9.3 g/dL (13.5-17.5); IMMATURE GRANULOCYTES 1.3 % (0-5); LYMPHOCYTES 22.9 % (15-50); MCH 31.1 pg (26.0-34.0); MCHC 33.1 g/dL (31.0-37.0); MEAN PLATELET VOLUME 10.1 fL (7.4-10.4); MONOCYTES 10.8 % (2-11); NEUTROPHILS 52.7 % (40-80); PLATELET COUNT 141 10x3/uL (130-400); RBC 2.99 10x6/uL (4.20-6.10)
[2017-06-06 06:01] LABS: WBC 4.6 10x3/uL (4.8-10.8)
[2017-06-06 06:16] LABS: ANION GAP 14.5 mmol/L (8-16); CALCIUM 8.5 mg/dL (8.5-10.1); CARBON DIOXIDE 24.1 mmol/L (21.0-32.0); CREATININE - SERUM 1.2 mg/dL (0.6-1.3)
[2017-06-06 06:24] LABS: POTASSIUM - SERUM 4.6 mmol/L (3.5-5.1)
[2017-06-06 08:27] VITALS: BP 134/74
[2017-06-06 12:31] VITALS: Ht 177.8 cm; Wt 104.3 kg
[2017-06-06 20:00] VITALS: BP 165/92
[2017-06-07 09:00] VITALS: BP 142/74
[2017-06-07 21:23] VITALS: BP 96/49
[2017-06-08 06:37] LABS: BASOPHILS 0.3 % (0-2); EOSINOPHILS 17.2 % (0-7); HEMATOCRIT 31.2 % (42.0-54.0); HEMOGLOBIN 10.2 g/dL (13.5-17.5); IMMATURE GRANULOCYTES 0.9 % (0-5); LYMPHOCYTES 31.5 % (15-50); MCH 30.9 pg (26.0-34.0); MCHC 32.7 g/dL (31.0-37.0); MCV 94.5 fL (80.0-100.0); MEAN PLATELET VOLUME 9.9 fL (7.4-10.4); MONOCYTES 9.3 % (2-11); NEUTROPHILS 40.8 % (40-80); RDW 16.3 % (11.5-14.5); WBC 7.9 10x3/uL (4.8-10.8)
[2017-06-08 06:50] LABS: PLATELET COUNT 199 10x3/uL (130-400)
[2017-06-08 07:31] LABS: ANION GAP 19.9 mmol/L (8-16); CALCIUM 8.7 mg/dL (8.5-10.1); CARBON DIOXIDE 20.8 mmol/L (21.0-32.0); CREATININE - SERUM 1.9 mg/dL (0.6-1.3); POTASSIUM - SERUM 4.7 mmol/L (3.5-5.1)
[2017-06-08 08:04] VITALS: BP 130/68
[2017-06-08 20:45] VITALS: BP 148/69
[2017-06-09 13:18] VITALS: BP 141/79
[2017-06-09 19:56] VITALS: BP 129/67
[2017-06-10 06:42] LABS: BASOPHILS 0.2 % (0-2); EOSINOPHILS 17.4 % (0-7); HEMATOCRIT 31.3 % (42.0-54.0); HEMOGLOBIN 10.4 g/dL (13.5-17.5); IMMATURE GRANULOCYTES 1.2 % (0-5); MCH 30.8 pg (26.0-34.0); MCHC 33.2 g/dL (31.0-37.0); MCV 92.6 fL (80.0-100.0); MEAN PLATELET VOLUME 9.8 fL (7.4-10.4); MONOCYTES 10.9 % (2-11); NEUTROPHILS 32.3 % (40-80); PLATELET COUNT 186 10x3/uL (130-400); RBC 3.38 10x6/uL (4.20-6.10); RDW 15.9 % (11.5-14.5); WBC 6.4 10x3/uL (4.8-10.8)
[2017-06-10 06:45] LABS: ANION GAP 15.3 mmol/L (8-16); CALCIUM 8.9 mg/dL (8.5-10.1); CARBON DIOXIDE 26.1 mmol/L (21.0-32.0); CREATININE - SERUM 1.5 mg/dL (0.6-1.3); POTASSIUM - SERUM 4.4 mmol/L (3.5-5.1)
[2017-06-10 07:46] VITALS: BP 127/76
[2017-06-10 19:41] VITALS: BP 129/84
[2017-06-11 08:00] VITALS: BP 108/47
[2017-06-11 19:30] VITALS: BP 132/67
[2017-06-13 00:05] VITALS: BP 143/77
[2017-06-13 10:41] VITALS: BP 119/69
[2017-06-13 20:00] VITALS: BP 116/75
[2017-06-14 14:26] VITALS: BP 134/62
[2017-06-14 19:51] VITALS: BP 122/65
[2017-06-15 06:56] LABS: ANION GAP 16.1 mmol/L (8-16); BASOPHILS 0.2 % (0-2); CALCIUM 8.8 mg/dL (8.5-10.1); CARBON DIOXIDE 24.8 mmol/L (21.0-32.0); CREATININE - SERUM 2.1 mg/dL (0.6-1.3); EOSINOPHILS 14.8 % (0-7); HEMATOCRIT 30.4 % (42.0-54.0); HEMOGLOBIN 10.3 g/dL (13.5-17.5); IMMATURE GRANULOCYTES 1.9 % (0-5); LYMPHOCYTES 27.2 % (15-50); MCH 31.1 pg (26.0-34.0); MCHC 33.9 g/dL (31.0-37.0); MCV 91.8 fL (80.0-100.0); MEAN PLATELET VOLUME 10.1 fL (7.4-10.4); MONOCYTES 9.7 % (2-11); NEUTROPHILS 46.2 % (40-80); PLATELET COUNT 235 10x3/uL (130-400); POTASSIUM - SERUM 4.9 mmol/L (3.5-5.1); RBC 3.31 10x6/uL (4.20-6.10); RDW 15.7 % (11.5-14.5)
[2017-06-15 08:00] VITALS: BP 124/61; BP 124/611
[2017-06-15 20:31] VITALS: BP 172/84
[2017-06-15 22:37] VITALS: BP 172/84
[2017-06-16 08:00] VITALS: BP 111/57
[2017-06-16 22:44] VITALS: BP 109/59
[2017-06-17 06:50] LABS: BASOPHILS 0.2 % (0-2); EOSINOPHILS 14.9 % (0-7); HEMATOCRIT 32.3 % (42.0-54.0); HEMOGLOBIN 10.3 g/dL (13.5-17.5); IMMATURE GRANULOCYTES 2.1 % (0-5); MCH 30.1 pg (26.0-34.0); MCHC 31.9 g/dL (31.0-37.0); MEAN PLATELET VOLUME 10.1 fL (7.4-10.4); MONOCYTES 7.6 % (2-11); NEUTROPHILS 48.2 % (40-80); PLATELET COUNT 273 10x3/uL (130-400); RBC 3.42 10x6/uL (4.20-6.10); RDW 15.6 % (11.5-14.5); WBC 12.1 10x3/uL (4.8-10.8)
[2017-06-17 06:54] LABS: MCV 94.4 fL (80.0-100.0)
[2017-06-17 07:01] LABS: ANION GAP 16.2 mmol/L (8-16); CALCIUM 9.1 mg/dL (8.5-10.1); CARBON DIOXIDE 26.2 mmol/L (21.0-32.0); CREATININE - SERUM 2.3 mg/dL (0.6-1.3); POTASSIUM - SERUM 5.4 mmol/L (3.5-5.1)
[2017-06-17 07:47] VITALS: BP 117/51
[2017-06-17] MEDS ORDERED: MORPHINE IMMEDI15 MG PO (08:57)
[2017-06-17] MEDS ORDERED: METHADONE 10 MG10 MG PO (08:57)
== END 2017-06-17 13:30 | disposition home health service (06) | DRG 190 ==
LOC: D.REHAB 18:48
PROVIDERS: Emergency Medicine
DX: J44.1 Chronic obstructive pulmonary disease with (acute) exacerbation (principal); L89.153 Pressure ulcer of sacral region, stage 3; K56.7 Ileus, unspecified; E11.65 Type 2 diabetes mellitus with hyperglycemia; I11.0 Hypertensive heart disease with heart failure; I50.9 Heart failure, unspecified; I48.91 Unspecified atrial fibrillation; E86.0 Dehydration; E87.5 Hyperkalemia; K59.00 Constipation, unspecified; E11.9 Type 2 diabetes mellitus without complications; G89.29 Other chronic pain; D63.1 Anemia in chronic kidney disease

== ENCOUNTER → 2017-08-07 09:16 | Outpatient (CLI) | payer MEDICARE, OTHER ==
[2017-06-06 12:31] VITALS: BMI 33.0
== END | disposition home or self-care (01) ==
LOC: D.CT 09:16
DX: I71.4 Abdominal aortic aneurysm, without rupture (principal)